=== PATIENT | female | born 1955 | race Hispanic/Latino ===

== ENCOUNTER → 2018-04-09 | Outpatient (CLI) | payer OTHER, MEDICARE ==
[~2018-04-09] MED LIST: ATENOLOL25 MG PO; ATENOLOL50 MG PO; DEXILANT60 MG PO; LOVASTATIN40 MG PO; MAG OX PO; NEURONTIN300 MG PO; OMEPRAZOLE20 MG PO; PRILOSEC20 MG PO; PRINIVIL10 MG PO; ULTRAM50 MG PO; ZOCOR10 MG PO
--- NOTE | 2018-04-12 08:43 | Diagnostic Imaging Report ---
TECHNIQUE: Magnetic resonance imaging of the LEFT foot (hindfoot and midfoot) was performed WITHOUT injected contrast. HISTORY: Edema, 6 months, report of a cyst removed about 6 years ago, problems since, pain and swelling COMPARISON: None available. DISCUSSION: Bone: No focal or infiltrative bone marrow replacing abnormality. No acute fracture or osteonecrosis. Moderate plantar calcaneal enthesophyte. Joints: No dislocation. Small nonspecific subtalar joint effusion. Mild scattered degenerative changes, most notably the third tarsometatarsal joint. Soft Tissues: Mild nonspecific dorsal soft tissue edema. Moderate thickening of the medial cord of the plantar fascia near the calcaneal insertion. IMPRESSION: 1. Mild nonspecific dorsal soft tissue edema. 2. Chronic plantar calcaneal enthesopathy. 3. Mild osteoarthrosis, most notably the third tarsometatarsal joint. Signed by: Dr. Raheel Epperson D.O., M.M.M. on 04/12/2018 8:39 AM
== END ==
LOC: MRI 15:30
PROVIDERS: ATTEND Podiatrist Foot & Ankle Surgery
DX: M79.672 Pain in left foot (principal); M79.89 Other specified soft tissue disorders; R60.9 Edema, unspecified; M77.8 Other enthesopathies, not elsewhere classified; M19.072 Primary osteoarthritis, left ankle and foot

== ENCOUNTER 2019-12-14 05:19 | Inpatient (IN) | payer OTHER, MEDICARE ==
[~2019-12-14] VITALS: Ht 170.2 cm; Wt 83.9 kg
[2019-12-14] MEDS ORDERED: SODIUM CHLORIDE 0.9% 1000ML 1,000 ML IV STA ×3 (05:23→08:44)
[2019-12-14] MEDS ORDERED: ONDANSETRON HCL INJ 2MG/ML 2ML 2 MG/ML VIAL IV STA (05:23)
[2019-12-14] MEDS ORDERED: MORPHINE SULFATE INJ 4 MG/ML INJ 1ML IV STA (05:23)
--- OUTSIDE RECORDS SUMMARY | 2019-12-14 05:25 | XMS REPORT ---
Author Author [facility] Address Unknown Phone Unavailable Care Team Providers Care Supervisor Estimator And Drafter Name Role Phone ED BARRERA Unavailable Unavailable Payers Payer Name Policy Type Policy Number Effective Date Expiration Date Problems This patient has no known problems. Allergies, Adverse Reactions, Alerts Allergy Name Allergy Type Status Severity Reaction(s) Onset Date Inactive Date Treating Clinician Comments Penicillins DA Active SV 2018-05-04 00:00:00 levofloxacin DA Active DC 2018-05-04 00:00:00 pregabalin DA Active MO 2018-05-04 00:00:00 pregabalin DA Active MO 2017-12-01 00:00:00 penicillin G DA Active MO 2017-11-26 00:00:00 Medications This patient has no known medications. Results Test Description Test Time Test Comments Text Results Atomic Results Result Comments - XR WRIST 3 + V RT 2019-07-20 22:34:00 Name: MANE DOYLE LOURDES [facility] : 1955 Age/S:63 /F [address] [facility] Unit#:[id number] Loc: [place] [address] Phys: Jessie Cruz SKID MAN Dis Date: PHONE #: [phone] Status: REG ER FAX #: [phone] Exam Date: 07/20/2019 Reason: injury EXAMS: CPT CODE: [id number] XR WRIST 3 + V RT [id number] REASON FOR EXAM: injury EXAM ORDER DATE: 07/20/2019 9:56 PM Ordering Charlie: Jessie Cruz NP PROCEDURE: - XR WRIST 3 + V RT FINDINGS: 3 views of the right wrist were obtained. A transverse, minimally displaced fracture of the distal right radius. The joint spaces are maintained. No evidence of fracture. The radiocarpal joint space is intact. The carpal bones are intact IMPRESSION: Minimally displaced transverse distal right radial fracture at 2234 Reported and signed by: Randy Pelaez M.D. CC: Jessie Cruz NP Technologist: KENA RAI RT(R),RDMS,CT Trnscrpt Data: 07/20/2019 ([id number]) [email or web address] Orig Print D/T: S: 07/20/2019 ([id number]) PAGE 1 Signed Report SCR MAMM BILATERAL VENECIA CAD DIGITAL 2019-04-28 09:29:35 - SCR MAMM BILATERAL VENECIA CAD DIGITALBILATERAL DIGITAL SCREENING MAMMOGRAM 3D/2D WITH CAD: 04/26/2019CLINICAL: Asymptomatic. Digital breast tomosynthesis was performed in addition to routine CC and MLO views. Current mammographic images were evaluated by either a [employer] M-Vu or a [employer] ImageMemoirer CAD (computer aided detection system). Comparison is made to exams dated 08/11/2017 mammogram, 06/03 mammogram, and 02/09/2015 mammogram - [facility]. There are scattered fibroglandular tissues in both breasts. No suspicious mass, architectural distortion, malignant type calcification, or lymph node abnormality detected. Breast architecture is stable compared to prior exams.IMPRESSION: NEGATIVEThere is no mammographic evidence of malignancy. Resume annual screening mammography in one year. Krysten medley/penrad:04/28/2019 09:29:35 Water Mechanic: Kay SANTOS, [facility] sent: BIRADS 1-2 Normal Mammogram BI-RADS: 1 Negative MRI FOOT LEFT WO 2018-04-12 08:17:00 [place] [address] Patient Name: MANE DOYLE MR #: [id number] : 1955 Age/Sex: 62/F Req #: [id number] Adm Physician: Ordered by: ED BARRERA DPM Report #: [id number] Location: MRI Room/Bed: Procedure: MRI/MRI FOOT LEFT WO Exam Date: Exam Time: REPORT STATUS: Signed TECHNIQUE: Magnetic resonance imaging of the LEFT foot (hindfoot and midfoot) was performed WITHOUT injected contrast. HISTORY: Edema, 6 months, report of a cyst removed about 6 years ago, problems since, pain and swelling COMPARISON: None available. DISCUSSION: Bone: No focal or infiltrative bone marrow replacing abnormality. No acute fracture or osteonecrosis. Moderate plantar calcaneal enthesophyte. Joints: No dislocation. Small nonspecific subtalar joint effusion. Mild scattered degenerative changes, most notably the third tarsometatarsal joint. Soft Tissues: Mild nonspecific dorsal soft tissue edema. Moderate thickening of the medial cord of the plantar fascia near the calcaneal insertion. IMPRESSION: 1. Mild nonspecific dorsal soft tissue edema. 2. Chronic plantar calcaneal enthesopathy. 3. Mild osteoarthrosis, most notably the third tarsometatarsal joint. Signed by: Dr. Raheel Epperson D.O., M.M.M. on 04/12/2018 8:39 AM Dictated By: RAHEEL EPPERSON DO 8 Transcribed By: LEFTY on 04/12/18838 COPY TO: ED BARRERA DPM
[2019-12-14] MEDS ORDERED: SODIUM CHLORIDE 0.9% 1000ML 1,000 ML ONE (05:29)
[2019-12-14] MEDS ORDERED: HYDROCODONE/APAP 5MG-325MG TAB PO PRN (06:15)
[2019-12-14 06:22] LABS: BASOPHILS # (AUTO) 0.1 (0.0-0.1); BASOPHILS % 0.4 % (0.0-1.0); EOSINOPHILS % 0.2 % (0.0-6.0); HEMATOCRIT 42.4 % (34.2-44.1); HEMOGLOBIN 14.2 g/dL (12.0-16.0); LYMPHOCYTES # (AUTO) 1.1 (1.0-3.2); LYMPHOCYTES % 5.9 % (18.0-39.1); MEAN CORPUSCULAR HGB CONC 33.5 g/dL (31-35); MEAN CORPUSCULAR VOLUME 86.5 fL (81-99); MONOCYTES # (AUTO) 0.8 (0.2-0.8); MONOCYTES % 4.2 % (4.4-11.3); NEUTROPHILS # (AUTO) 15.8 (2.1-6.9); NEUTROPHILS % 88.8 % (38.7-80.0); PLATELET COUNT 269 x10e3/uL (140-360); RED CELL DISTRIBUTION WIDTH 12.2 % (11.7-14.4)
[2019-12-14 06:52] LABS: ALANINE AMINOTRANSFERASE 29 IU/L (0-55); ALBUMIN 4.2 g/dL (3.5-5.0); ALBUMIN/GLOBULIN RATIO 1.2 (0.8-2.0); ALKALINE PHOSPHATASE 83 IU/L (40-150); ANION GAP 16.8 mmol/L (8-16); BLOOD UREA NITROGEN 17 mg/dL (7-26); BUN/CREATININE RATIO 22 (6-25); CALCIUM 9.8 mg/dL (8.4-10.2); CARBON DIOXIDE 25 mmol/L (22-29); CHLORIDE 101 mmol/L (98-107); CREATINE KINASE 61 IU/L (29-168); CREATININE, SERUM 0.79 mg/dL (0.57-1.11); EST GLOMERULAR FILTRATION RATE > 60 ML/MIN (60-); GLUCOSE 214 mg/dL (74-118); LIPASE 24 U/L (8-78); POTASSIUM 3.8 mmol/L (3.5-5.1); SODIUM 139 mmol/L (136-145)
[2019-12-14] MEDS ORDERED: CIPROFLOXACIN 400 MG/D5W 200ML 200 ML IV ONE (07:45)
[2019-12-14] MEDS ORDERED: IOPAMIDOL 370 MG/ML 200 ML INFUS..BTL INJ ONE (07:51)
[2019-12-14] MEDS ORDERED: SODIUM CHLORIDE 0.9% 50ML 50 ML ONE (07:51)
--- NOTE | 2019-12-14 08:01 | Diagnostic Imaging Report ---
EXAM: CT Abdomen and Pelvis WITH contrast INDICATION: Abdominal pain, nausea, vomiting, diarrhea COMPARISON: None. TECHNIQUE: Abdomen and pelvis were scanned utilizing a multidetector helical scanner from the lung base to the pubic symphysis after administration of IV contrast. Coronal and sagittal reformations were obtained. Routine protocol was performed. Scan was performed when during portal venous phase. IV CONTRAST: 100 mL of Isovue 370 ORAL CONTRAST: None COMPLICATIONS: None RADIATION DOSE: Total DLP: 517 mGy*cm Estimated effective dose: (DLP x 0.015 x size factor) mSv CTDIvol has been reviewed. It is below the limits set by the Radiation Protocol Committee (RPC). Dose modulation, iterative reconstruction, and/or weight based adjustment of the mA/kV was utilized to reduce the radiation dose to as low as reasonably achievable. FINDINGS: LINES/TUBES/DEVICES: Cardiac device lead tip in the right ventricle. Implanted cardiac device in the left chest subcutaneous adipose. LOWER THORAX: Unremarkable HEPATOBILIARY: Diffuse hepatic hypoattenuation relative to the spleen. No focal hepatic lesions. No biliary ductal dilation. GALLBLADDER: There are cholecystectomy clips. SPLEEN: No splenomegaly. PANCREAS: No focal masses or ductal dilatation. ADRENALS: No adrenal nodules KIDNEYS/URETERS: Subcentimeter left renal superior pole hypodensity is too small to characterize, likely benign. Kidneys enhance symmetrically. No hydronephrosis. No stones. GI TRACT: No abnormal distention, wall thickening, or evidence of bowel obstruction. Some distal small bowel loops demonstrate wall enhancement. Liquid stool throughout the colon. Appendix is normal. PELVIC ORGANS/BLADDER: Unremarkable. LYMPH NODES: No lymphadenopathy. VESSELS: Unremarkable. PERITONEUM / RETROPERITONEUM: No free air or fluid. BONES: Degenerative changes in the spine L4-S1 fixation hardware appears intact. Benign-appearing sclerosis in the right posterior iliac. Deformity of the left posterior iliac wing. SOFT TISSUES: Unremarkable. IMPRESSION: Findings can be seen with enterocolitis. Liquid stool in the colon compatible with diarrhea. Signed by: Dominick Rivas DO on 12/14/2019 7:58 AM
[2019-12-14] MEDS ORDERED: METOCLOPRAMIDE HCL 10 MG/2ML VIAL IV ONE (08:15)
[2019-12-14] MEDS ORDERED: METRONIDAZOLE 500MG/NS 100ML 100 ML IV ONE ×2 (08:15→08:19)
--- NOTE | 2019-12-14 09:02 | NUR ---
THIS AM AT 700 PT STATED SHE WAS TOO DIZZY TO WALK TO RESTROOM OR CLEAN HERSELF. PT WAS OBSERVED WALKING WITH EVEN STEADY GAIT TO RESTROOM.
--- NOTE | 2019-12-14 09:57 | NUR ---
CLEANED BY BED AND PT AND NEW CLOTHING AND DIAPER AND WIPES AND CLEANED.
[2019-12-14] MEDS ORDERED: DEXTROSE 50% SYRINGE 50 ML IV PRN (10:15)
[2019-12-14] MEDS ORDERED: METRONIDAZOLE 500MG/NS 100ML IV SCH (12:00)
[2019-12-14] MEDS: INSULIN REGULAR, HUMAN 100 UNIT/1 ML 3ML VIAL SQ SCH ×3 (12:13→21:00)
[2019-12-14] MEDS: SODIUM CHLORIDE 0.9% 1000ML 1,000 ML IV SCH ×2 (13:43→21:58)
--- NOTE | 2019-12-14 13:44 | NUR ---
blood cx and lactic done; per lab lactic hemolyzed and lab coming to re draw. aware.
[2019-12-14 15:55] VITALS: BP 118/66
--- NOTE | 2019-12-14 16:00 | NUR ---
The pt. was received from ER with comp of abd pain. Adm procedures were performed and the pt. reports pain @7/10. Post adm procedures completed the pt was medicated for pain.
[2019-12-14] MEDS ORDERED: MORPHINE SULFATE 2 MG/ML SYR 1ML IV PRN (16:15)
[2019-12-14 16:23] VITALS: BP 128/62
[2019-12-14] MEDS: METRONIDAZOLE 500MG/NS 100ML 100 ML IV SCH ×2 (16:48→21:39)
[2019-12-14] MEDS: HYDROMORPHONE 1MG/1ML INJ IV PRN (16:48)
[2019-12-14] MEDS: FAMOTIDINE 20 MG/2 ML VIAL IV SCH (17:00)
--- NOTE | 2019-12-14 19:15 | NUR ---
Patient received lying in bed. AAO x 3. Patient had no complaints of pain. Respirations even and non-labored. Fall precautions implemented. IVF infusing at 125 cc/hr. Patient instructed to call for assistance when needed. Call light within reach.
[2019-12-14 20:00] VITALS: BP 146/67
[2019-12-14 21:09] VITALS: BP 146/67
[2019-12-14] MEDS: CIPROFLOXACIN 400 MG/D5W 200ML 200 ML IV SCH (22:40)
[2019-12-15] VITALS (8 sets, daily range): BP systolic 105–159; BP diastolic 57–75
--- NOTE | 2019-12-15 01:55 | NUR ---
Patient's IV on left arm infiltrated. Old IV removed with tip intact. New IV inserted in patient's left upper arm. Patient tolerated well.
--- NOTE | 2019-12-15 02:00 | NUR ---
Blood specimen sent to lab for analysis of lactic aid level.
[2019-12-15] MEDS: SODIUM CHLORIDE 0.9% 1000ML 1,000 ML IV SCH ×2 (02:02→20:00)
[2019-12-15] MEDS: METRONIDAZOLE 500MG/NS 100ML 100 ML IV SCH ×4 (03:00→21:35)
[2019-12-15 06:30] LABS: BASOPHILS % 0.6 % (0.0-1.0); EOSINOPHILS # (AUTO) 0.1 (0.0-0.4); HEMATOCRIT 33.5 % (34.2-44.1); HEMOGLOBIN 10.9 g/dL (12.0-16.0); LYMPHOCYTES # (AUTO) 1.7 (1.0-3.2); LYMPHOCYTES % 27.2 % (18.0-39.1); MEAN CORPUSCULAR HEMOGLOBIN 28.5 pg (28-32); MEAN CORPUSCULAR HGB CONC 32.5 g/dL (31-35); MEAN CORPUSCULAR VOLUME 87.5 fL (81-99); MONOCYTES # (AUTO) 0.4 (0.2-0.8); MONOCYTES % 6.9 % (4.4-11.3); NEUTROPHILS % 64.1 % (38.7-80.0); PLATELET COUNT 188 x10e3/uL (140-360); RED BLOOD COUNT 3.83 x10e6/uL (3.6-5.1); RED CELL DISTRIBUTION WIDTH 12.4 % (11.7-14.4)
[2019-12-15 06:54] LABS: ALANINE AMINOTRANSFERASE 17 IU/L (0-55); ALBUMIN 3.2 g/dL (3.5-5.0); ALBUMIN/GLOBULIN RATIO 1.2 (0.8-2.0); ALKALINE PHOSPHATASE 58 IU/L (40-150); ANION GAP 10.6 mmol/L (8-16); BLOOD UREA NITROGEN 6 mg/dL (7-26); BUN/CREATININE RATIO 9 (6-25); CALCIUM 8.6 mg/dL (8.4-10.2); CARBON DIOXIDE 26 mmol/L (22-29); CHLORIDE 111 mmol/L (98-107); CREATININE, SERUM 0.68 mg/dL (0.57-1.11); EST GLOMERULAR FILTRATION RATE > 60 ML/MIN (60-); GLUCOSE 139 mg/dL (74-118); LIPASE 8 U/L (8-78); POTASSIUM 3.6 mmol/L (3.5-5.1); SODIUM 144 mmol/L (136-145)
--- NOTE | 2019-12-15 07:00 | NUR ---
Walkings rounds done. Patient resting comfortably. Shift report given to oncoming nurse
[2019-12-15] MEDS: INSULIN REGULAR, HUMAN 100 UNIT/1 ML 3ML VIAL SQ SCH ×4 (07:30→21:00)
--- NOTE | 2019-12-15 07:30 | NUR ---
PATIENT IN BED RESTING WITH EYES CLOSED, NO RESPIRATORY DISTRESS OBSERVED. IV FLUID INFUSING ORDERED. BED IN LOWER POSITION, CALL LIGHT AT REACH.
[2019-12-15] MEDS: FAMOTIDINE 20 MG/2 ML VIAL IV SCH ×2 (09:06→17:02)
[2019-12-15] MEDS: CIPROFLOXACIN 400 MG/D5W 200ML 200 ML IV SCH ×2 (10:10→22:35)
--- NOTE | 2019-12-15 11:33 | NUR ---
PATIENT SITTING AT BED SIDE WATCHING TV, CALL LIGHT AT REACH.
--- NOTE | 2019-12-15 15:15 | NUR ---
PATIENT ASSISTED WITH SHOWER, BACK IN BED TALKING TO FAMILY MEMBER VISITING. CALL LIGHT AT REACH.
[2019-12-15] MEDS: TRAMADOL HCL 50 MG TAB PO SCH (17:02)
[2019-12-15] MEDS: GABAPENTIN 300 MG CAP PO SCH (17:02)
--- NOTE | 2019-12-15 19:15 | NUR ---
Patient received lying in bed. AAO x 4 . Family at bedside. No acute distress noted. Call light within reach.
[2019-12-15] MEDS: SIMVASTATIN 40 MG TAB PO SCH (21:35)
[2019-12-16] VITALS (7 sets, daily range): BP systolic 131–162; BP diastolic 60–74
[2019-12-16] MEDS: ONDANSETRON HCL INJ 2MG/ML 2ML 2 MG/ML VIAL IV PRN ×3 (00:10→15:05)
[2019-12-16] MEDS: METRONIDAZOLE 500MG/NS 100ML 100 ML IV SCH ×4 (01:59→20:30)
[2019-12-16] MEDS: SODIUM CHLORIDE 0.9% 1000ML 1,000 ML IV SCH (03:53)
[2019-12-16 05:24] LABS: BASOPHILS % 0.5 % (0.0-1.0); EOSINOPHILS # (AUTO) 0.1 (0.0-0.4); HEMOGLOBIN 10.7 g/dL (12.0-16.0); LYMPHOCYTES # (AUTO) 1.8 (1.0-3.2); LYMPHOCYTES % 29.2 % (18.0-39.1); MEAN CORPUSCULAR HEMOGLOBIN 28.3 pg (28-32); MEAN CORPUSCULAR HGB CONC 32.4 g/dL (31-35); MEAN CORPUSCULAR VOLUME 87.3 fL (81-99); MONOCYTES # (AUTO) 0.5 (0.2-0.8); MONOCYTES % 8.1 % (4.4-11.3); NEUTROPHILS # (AUTO) 3.7 (2.1-6.9); NEUTROPHILS % 60.9 % (38.7-80.0); PLATELET COUNT 173 x10e3/uL (140-360); RED BLOOD COUNT 3.78 x10e6/uL (3.6-5.1); RED CELL DISTRIBUTION WIDTH 12.4 % (11.7-14.4)
[2019-12-16 05:39] LABS: ANION GAP 12.2 mmol/L (8-16); BLOOD UREA NITROGEN 5 mg/dL (7-26); BUN/CREATININE RATIO 8 (6-25); CALCIUM 8.6 mg/dL (8.4-10.2); CARBON DIOXIDE 24 mmol/L (22-29); CHLORIDE 109 mmol/L (98-107); CREATININE, SERUM 0.64 mg/dL (0.57-1.11); EST GLOMERULAR FILTRATION RATE > 60 ML/MIN (60-); GLUCOSE 118 mg/dL (74-118); POTASSIUM 3.2 mmol/L (3.5-5.1); SODIUM 142 mmol/L (136-145)
--- NOTE | 2019-12-16 06:30 | NUR ---
Dr. Richardson here to see patient. New orders received.
--- NOTE | 2019-12-16 06:45 | NUR ---
Stool specimen sent to lab for analysis
--- NOTE | 2019-12-16 07:00 | NUR ---
Walking rounds done. Patient resting comfortably. Shift report given to oncoming nurse.
[2019-12-16] MEDS ORDERED: CITRATE OF MAGNESIA 300ML BOTTLE PO ONE ×2 (07:10→07:45)
[2019-12-16 07:19] LABS: FERRITIN 69.18 ng/mL (4.63-204.00)
--- NOTE | 2019-12-16 07:20 | NUR ---
MD IN TO SEE PATIENT, NEW ORDERS RECEIVED. PATIENT IN BED WITH CALL LIGHT AT REACH.
[2019-12-16] MEDS ORDERED: PANTOPRAZOLE SOD 40 MG TABEC PO SCH (07:30)
[2019-12-16] MEDS: INSULIN REGULAR, HUMAN 100 UNIT/1 ML 3ML VIAL SQ SCH ×4 (07:30→21:00)
--- NOTE | 2019-12-16 08:43 | NUR ---
SPOKE WITH MD REGARDING ABNORMAL LAB RESULT, NEW ORDER RECEIVED.
[2019-12-16] MEDS: ATENOLOL 50 MG TAB PO SCH (09:00)
[2019-12-16] MEDS: LISINOPRIL 10 MG TAB PO SCH (09:00)
[2019-12-16] MEDS: TRAMADOL HCL 50 MG TAB PO SCH ×2 (09:00→17:00)
[2019-12-16] MEDS: GABAPENTIN 300 MG CAP PO SCH ×2 (09:00→17:00)
[2019-12-16] MEDS ORDERED: POTASSIUM CHLORIDE 20MEQ/100ML 200 ML IV ONE (09:15)
[2019-12-16] MEDS: FAMOTIDINE 20 MG/2 ML VIAL IV SCH ×2 (09:21→19:08)
[2019-12-16] MEDS: CIPROFLOXACIN 400 MG/D5W 200ML 200 ML IV SCH ×2 (09:33→20:30)
[2019-12-16] MEDS: MAGNESIUM OXIDE 400 MG TAB PO SCH ×2 (10:15→17:00)
[2019-12-16] MEDS ORDERED: POTASSIUM CHLORIDE 10MEQ EA PO ONE (10:50)
--- NOTE | 2019-12-16 11:03 | NUR ---
PATIENT C/O NAUSEA, PRN ZOFRAN GIVEN. WILL CLOSELY MONITOR.
--- NOTE | 2019-12-16 12:00 | NUR ---
PATIENT HAS AN ORDER FOR PO POTASSIUM , REFUSED STATING THAT IT WILL COME OUT IMMEDIATELY. NAUSEA MEDICATION GIVEN. PATIENT CONTINUES TO REFUSE.
[2019-12-16] MEDS ORDERED: ROCURONIUM BROMIDE 10 MG/ML 5ML VIAL ONE (12:59)
[2019-12-16] MEDS: SOD CHL 0.45%/POT CHL 20MEQ 1,000 ML IV SCH ×2 (15:00→20:30)
[2019-12-16] MEDS ORDERED: FENTANYL CITRATE/PF 100MCG/2 ML INJ ONE (15:04)
[2019-12-16] MEDS ORDERED: MIDAZOLAM HCL 2 MG/2 ML VIAL ONE (15:04)
--- NOTE | 2019-12-16 15:45 | NUR ---
PATIENT OFF UNIT TO ENDO.
[2019-12-16] MEDS ORDERED: ONDANSETRON HCL INJ 2MG/ML 2ML 2 MG/ML VIAL ONE (18:29)
[2019-12-16] MEDS ORDERED: PANTOPRAZOLE 40 MG 10ML VIAL IV NR (18:45)
--- NOTE | 2019-12-16 18:58 | NUR ---
PATIENT BACK TO UNIT FROM ENDO. ALERT AND VERBALLY RESPONSIVE. HAD A COLONOSCOPY AND EGD. POLYPS REMOVED AND BIOPSY PER PACU NURSE. V/S 97.5-56-18-132/60 AND 99% ON RA.
[2019-12-16 19:00] LABS: WBC,FECAL (FECAL LACTOFERRIN) NEGATIVE (NEGATIVE)
[2019-12-16] MEDS: SIMVASTATIN 40 MG TAB PO SCH (20:30)
[2019-12-16] MEDS: HYDROMORPHONE 1MG/1ML INJ IV PRN (20:30)
[2019-12-16] MEDS: DICYCLOMINE HCL 20 MG TAB PO SCH (20:30)
[2019-12-17] VITALS (8 sets, daily range): BP systolic 99–137; BP diastolic 55–63
[2019-12-17] MEDS: METRONIDAZOLE 500MG/NS 100ML 100 ML IV SCH ×4 (02:30→22:38)
[2019-12-17] MEDS: SOD CHL 0.45%/POT CHL 20MEQ 1,000 ML IV SCH ×2 (05:30→15:30)
[2019-12-17] MEDS ORDERED: PANTOPRAZOLE 40 MG 10ML VIAL IV SCH (06:00)
[2019-12-17 06:31] LABS: ANION GAP 12.5 mmol/L (8-16); BLOOD UREA NITROGEN 5 mg/dL (7-26); BUN/CREATININE RATIO 7 (6-25); CALCIUM 8.5 mg/dL (8.4-10.2); CARBON DIOXIDE 18 mmol/L (22-29); CHLORIDE 113 mmol/L (98-107); CREATININE, SERUM 0.67 mg/dL (0.57-1.11); EST GLOMERULAR FILTRATION RATE > 60 ML/MIN (60-); GLUCOSE 100 mg/dL (74-118); MAGNESIUM 2.1 MG/DL (1.3-2.1); PHOSPHORUS 3.1 MG/DL (2.3-4.7); POTASSIUM 3.5 mmol/L (3.5-5.1); SODIUM 140 mmol/L (136-145)
--- NOTE | 2019-12-17 07:00 | NUR ---
Patient resting comfortably. No acute distress noted. Shift report given to oncoming nurse.
--- NOTE | 2019-12-17 07:25 | NUR ---
PT UP IN BED ,C/O MILD PAIN TO ABD ,STILL HAVING LIQUID STOOLS
[2019-12-17] MEDS: INSULIN REGULAR, HUMAN 100 UNIT/1 ML 3ML VIAL SQ SCH ×4 (07:30→21:00)
[2019-12-17] MEDS: ATENOLOL 50 MG TAB PO SCH (09:00)
[2019-12-17] MEDS: FAMOTIDINE 20 MG/2 ML VIAL IV SCH (09:00)
[2019-12-17] MEDS: TRAMADOL HCL 50 MG TAB PO SCH ×2 (09:00→17:27)
[2019-12-17] MEDS: LISINOPRIL 10 MG TAB PO SCH (09:00)
[2019-12-17] MEDS: CIPROFLOXACIN 400 MG/D5W 200ML 200 ML IV SCH ×2 (09:00→21:00)
[2019-12-17] MEDS: DICYCLOMINE HCL 20 MG TAB PO SCH ×4 (09:00→21:00)
[2019-12-17] MEDS: MAGNESIUM OXIDE 400 MG TAB PO SCH ×2 (09:00→17:21)
[2019-12-17] MEDS: GABAPENTIN 300 MG CAP PO SCH ×2 (09:00→17:21)
--- NOTE | 2019-12-17 13:13 | NUR ---
GABY MATUTE ORDERED,CLEAR YELLOW URINE Addendum: 12/17/19 at 1319 by Iliana Edwards LVN ENTER ON WRONG PAIENT
[2019-12-17 13:45] LABS: C DIFFICILE TOXIN A&B AMP PROB NEGATIVE (NEGATIVE)
[2019-12-17] MEDS: CHOLESTYRAMINE 4 GM PACKET PO SCH (17:21)
--- NOTE | 2019-12-17 17:59 | NUR ---
PT UP IN CHAIR,TOLERATING PO FULL LIQUID WELL,PAIN LEVEL 3 ABD
--- NOTE | 2019-12-17 19:30 | NUR ---
Patient received sitting by bedside. AAO x 4. Patient had complaints of pain (3/10) to left side of her abdomen. Will continue to monitor. No signs of respiratory distress. IVF infusing at 100 cc/hr. Safety measures in place. Patient instructed to call for assistance when needed. Call light within reach.
[2019-12-17] MEDS: SIMVASTATIN 40 MG TAB PO SCH (22:38)
[2019-12-18] VITALS (7 sets, daily range): BP systolic 96–133; BP diastolic 45–60
[2019-12-18] MEDS ORDERED: DIPHENOXYLATE/ATROPINE TAB PO STA ×2 (01:06→02:18)
[2019-12-18] MEDS: SOD CHL 0.45%/POT CHL 20MEQ 1,000 ML IV SCH (01:30)
--- NOTE | 2019-12-18 01:56 | Operative Report ---
DATE OF PROCEDURE: 12/16/2019 SURGEON: Alexi Richardson MD PROCEDURES: EGD with polypectomy and biopsies and colonoscopy with polypectomy and biopsies. INDICATIONS FOR EGD: Upper abdominal pain, nausea, and vomiting. INDICATION FOR COLONOSCOPY: Persistent diarrhea. MEDICATIONS: The patient was done under MAC, please see anesthesiologist's note. PROCEDURE IN DETAIL: With the patient in left lateral decubitus position, a flexible fiberoptic Olympus gastroscope was introduced into the esophagus under direct visualization without any difficulty. There was some patchy erythema noted in the distal esophagus. The scope was then advanced with ease into the stomach and the mucosa overlying the antrum and the body revealed some patchy erythema and low-grade to moderate edema, and biopsies were obtained and sent to stain for H pylori. A minute polyp was noted in the distal body along the greater curvature and that was partially excised with the cold biopsy forceps. The pylorus was of normal contour and shape, was intubated with ease and the scope was advanced all the way to the second portion of the duodenum. Biopsies were obtained from the proximal second portion and the duodenal bulb to rule out sprue. The scope was then withdrawn back into the stomach and retroflexed and the mucosa overlying the fundus as well as the cardia appeared to be within normal limits. The scope was then straightened out. It was subsequently withdrawn. The patient tolerated the procedure well. IMPRESSION: 1. Distal esophagitis. 2. Gastritis, biopsied. Biopsies sent to stain for H pylori. 3. Gastric polyp, distal body partially excised with cold biopsy forceps. 4. Rule out sprue. PLAN: Follow up histology. Initiate Protonix 40 mg one p.o. before meals b.i.d. The patient was then turned around after adequate lubrication of the anal canal. Flexible fiberoptic Olympus colonoscope was inserted into the rectum with ease and advanced all the way to the cecum. The mucosa overlying the cecum appeared to be within normal limits. The ileocecal valve was intubated and the scope was advanced into the terminal ileum. Biopsies were obtained. The scope was then withdrawn back into the colon. It was then withdrawn slowly and the mucosa overlying the ascending colon appeared to be within normal limits. One polyp was hot biopsied from the distal transverse colon. There were some mild patchy inflammatory changes noted in the left colon and multiple random biopsies were obtained. One polyp was hot snared from the sigmoid colon. There was a prominent fold in the distal sigmoid colon and that was biopsied. Similar inflammatory changes were noted in the rectum and biopsies were obtained. The scope was then retroflexed into the distal rectum and small internal hemorrhoids were noted, none of which was actively bleeding. The scope was then straightened out, it was subsequently withdrawn, and the patient tolerated procedure well. IMPRESSION: 1. Transverse colon polyp, hot biopsied. 2. Mild patchy left-sided colitis. 3. Sigmoid colon polyp, hot snared. 4. Prominent fold, distal sigmoid colon, biopsied. 5. Proctitis, mild, biopsied. 6. Internal hemorrhoids, none actively bleeding. PLAN: Follow up histology. Follow up stool studies. Initiate Bentyl 20 mg one p.o. q.i.d. Start GI soft diet. Alexi Richardson MD [facility] [place]/MODL /[id number] cc: Sukumar Perez MD
[2019-12-18] MEDS: METRONIDAZOLE 500MG/NS 100ML 100 ML IV SCH ×4 (02:00→20:17)
--- NOTE | 2019-12-18 07:00 | NUR ---
Walking rounds done. Patient resting comfortably. Bed-side shift report given to oncoming nurse.
[2019-12-18] MEDS: INSULIN REGULAR, HUMAN 100 UNIT/1 ML 3ML VIAL SQ SCH ×4 (07:30→21:00)
[2019-12-18] MEDS: PANTOPRAZOLE 40 MG 10ML VIAL IV SCH (08:37)
[2019-12-18] MEDS: LISINOPRIL 10 MG TAB PO SCH (08:38)
[2019-12-18] MEDS: DICYCLOMINE HCL 20 MG TAB PO SCH ×4 (08:38→20:18)
[2019-12-18] MEDS: CHOLESTYRAMINE 4 GM PACKET PO SCH ×2 (08:38→17:35)
[2019-12-18] MEDS: ATENOLOL 50 MG TAB PO SCH (08:38)
[2019-12-18] MEDS: GABAPENTIN 300 MG CAP PO SCH ×2 (08:38→17:35)
[2019-12-18] MEDS: TRAMADOL HCL 50 MG TAB PO SCH ×2 (08:39→17:35)
[2019-12-18] MEDS: CIPROFLOXACIN 400 MG/D5W 200ML 200 ML IV SCH (09:20)
[2019-12-18 11:22] LABS: BASOPHILS # (AUTO) 0.1 (0.0-0.1); BASOPHILS % 0.8 % (0.0-1.0); EOSINOPHILS # (AUTO) 0.2 (0.0-0.4); EOSINOPHILS % 2.3 % (0.0-6.0); HEMATOCRIT 34.7 % (34.2-44.1); HEMOGLOBIN 11.4 g/dL (12.0-16.0); LYMPHOCYTES # (AUTO) 1.9 (1.0-3.2); MEAN CORPUSCULAR HEMOGLOBIN 28.9 pg (28-32); MEAN CORPUSCULAR HGB CONC 32.9 g/dL (31-35); MEAN CORPUSCULAR VOLUME 88.1 fL (81-99); MONOCYTES # (AUTO) 0.5 (0.2-0.8); MONOCYTES % 7.8 % (4.4-11.3); NEUTROPHILS # (AUTO) 3.9 (2.1-6.9); NEUTROPHILS % 59.9 % (38.7-80.0); PLATELET COUNT 207 x10e3/uL (140-360); RED BLOOD COUNT 3.94 x10e6/uL (3.6-5.1); RED CELL DISTRIBUTION WIDTH 12.7 % (11.7-14.4)
[2019-12-18 11:30] LABS: ANION GAP 11.1 mmol/L (8-16); BLOOD UREA NITROGEN 5 mg/dL (7-26); BUN/CREATININE RATIO 6 (6-25); CALCIUM 8.7 mg/dL (8.4-10.2); CARBON DIOXIDE 21 mmol/L (22-29); CHLORIDE 110 mmol/L (98-107); EST GLOMERULAR FILTRATION RATE > 60 ML/MIN (60-); GLUCOSE 171 mg/dL (74-118); POTASSIUM 4.1 mmol/L (3.5-5.1); SODIUM 138 mmol/L (136-145)
--- NOTE | 2019-12-18 13:51 | Diagnostic Imaging Report ---
EXAMINATION: CHEST 2 VIEWS INDICATION: Pain. COMPARISON: None FINDINGS: TUBES and LINES: None. Single lead left-sided AICD. LUNGS: Lungs are well inflated. Mild bibasilar atelectasis. There is no evidence of pneumonia or pulmonary edema. PLEURA: No pleural effusion or pneumothorax. HEART AND MEDIASTINUM: The cardiomediastinal silhouette is unremarkable. BONES AND SOFT TISSUES: No acute osseous lesion. Degenerative changes of the thoracic spine. UPPER ABDOMEN: No free air under the diaphragm. Cholecystectomy clips. IMPRESSION: No acute thoracic abnormality. Signed by: Dr. Renay Silver M.D. on 12/18/2019 1:49 PM
[2019-12-18] MEDS ORDERED: CLINDAMYCIN HC150 MG PO (14:09)
[2019-12-18] MEDS ORDERED: PREDNISONE20 MG PO (14:10)
[2019-12-18] MEDS: CARVEDILOL 3.125 MG TAB PO SCH (17:00)
[2019-12-18] MEDS ORDERED: SODIUM CHLORIDE 0.9% 250ML 250 ML ONE (19:50)
[2019-12-18] MEDS: SIMVASTATIN 40 MG TAB PO SCH (20:18)
[2019-12-18] MEDS ORDERED: DIPHENOXYLATE/ATROPINE TAB PO ONE (23:30)
[2019-12-19] VITALS (9 sets, daily range): BP systolic 95–128; BP diastolic 44–66
[2019-12-19] MEDS ORDERED: DIPHENOXYLATE/ATROPINE TAB PO SCH (06:00)
--- NOTE | 2019-12-19 06:56 | NUR ---
RECEIVED BEDSIDE SHIFT REPORT FROM OFF GOING NURSE. PATIENT IS IN STABLE CONDITION, NO ACUTE DISTRESS NOTED. CALL LIGHT WITHIN REACH. BED IN THE LOWEST POSITION.
[2019-12-19] MEDS: INSULIN REGULAR, HUMAN 100 UNIT/1 ML 3ML VIAL SQ SCH ×4 (07:30→20:41)
[2019-12-19] MEDS: CHOLESTYRAMINE 4 GM PACKET PO SCH ×2 (09:07→17:27)
[2019-12-19] MEDS: DIPHENOXYLATE/ATROPINE TAB PO SCH ×3 (09:07→17:20)
[2019-12-19] MEDS: TRAMADOL HCL 50 MG TAB PO SCH ×2 (09:07→17:28)
[2019-12-19] MEDS: PANTOPRAZOLE 40 MG 10ML VIAL IV SCH (09:07)
[2019-12-19] MEDS: LISINOPRIL 10 MG TAB PO SCH (09:07)
[2019-12-19] MEDS: DICYCLOMINE HCL 20 MG TAB PO SCH ×4 (09:07→20:40)
[2019-12-19] MEDS: GABAPENTIN 300 MG CAP PO SCH ×2 (09:07→17:27)
[2019-12-19] MEDS: CARVEDILOL 3.125 MG TAB PO SCH ×2 (09:07→16:50)
--- NOTE | 2019-12-19 18:05 | NUR ---
PAGED [employer] FOR PACEMAKER INTERROGATION. SPOKE TO
--- NOTE | 2019-12-19 19:33 | NUR ---
Bedside shift report given to oncoming nurse. Patient is resting in bed, no s/s of distress noted. Call light within reach. Bed in the lowest position.
[2019-12-19] MEDS ORDERED: ONDANSETRON HCL 4 MG ORAL DISINTEGRATING TAB PO PRN ×2 (20:15)
[2019-12-19] MEDS: SIMVASTATIN 40 MG TAB PO SCH (20:40)
--- NOTE | 2019-12-19 23:54 | Consultation ---
DATE OF CONSULTATION: 12/19/2019 Cardiology Consult HISTORY OF PRESENT ILLNESS: Ms. Judy Stewart, a 64-year-old female, with a primary history of hypertension, diabetes, hyperlipidemia, bradyarrhythmia with pacemaker, originally admitted for acute gastroenteritis. Now, Cardiology is consulted for bradycardia on her EKG. The patient reports she has been having intermittent dizziness and severe fatigue with some shortness of breath and pulsatile tinnitus. The same symptoms she felt before the pacemaker was implanted in May 2018. The patient denies chest pain. PAST MEDICAL HISTORY: Hypertension, diabetes, hyperlipidemia, neuropathy. PAST SURGICAL HISTORY: Cholecystectomy and pacemaker implantation in May 2018, back surgery, and bilateral feet surgery. MEDICATIONS: The patient is taking carvedilol 3.125 mg b.i.d., lisinopril 10 mg daily, atorvastatin 40 mg daily. FAMILY HISTORY: Mother, father, and sister all three are for heart disease. SOCIAL HISTORY: The patient never smoked or no alcohol or drug use. PHYSICAL EXAMINATION: VITAL SIGNS: 100/60 blood pressure, heart rate is 60, temperature 97.9, respirations are 18, pulse oximetry is 97% to 99% on room air. APPEARANCE: The patient is well-developed. She is in no acute distress. HEENT: Head is normocephalic, atraumatic. Eyes, pupils are equal, round, reactive to light and accommodation. Sclerae are nonicteric. Ears are normal. Oral cavity mucosa is moist. Throat is clear. NECK: Supple. Full range of motion. No cervical lymphadenopathy. No. No thyromegaly. SKIN: Warm and dry. No suspicious lesions. CARDIOVASCULAR: Regular rate and rhythm. S1 and S2 are normal. No murmurs heard. LUNGS: Clear to auscultation. ABDOMEN: Soft, nontender, nondistended. Bowel sounds are present and normal. EXTREMITIES: No cyanosis. Do have trace edema bilaterally. NEUROLOGIC: Nonfocal. Motor strength in upper and lower extremities is normal. The sensory exam is intact. IMAGING DATA: EKG dated December 19, 2019, at 1032, it is sinus bradycardia with a rate of 56 beats per minute. T-wave abnormality in anterior leads. IMPRESSION AND RECOMMENDATION: The patient is a 64-year-old female with symptomatic bradycardia. 1. The patient's pacemaker needs to be interrogated. 2. Obtain echocardiogram. 3. Monitor on telemetry. 4. Further cardiac workup depending on clinical course. Thank you for your consultation. We will continue to follow. Dictated by Nina Ch, LIGHTING FIXTURES DECORATOR MD OMAR Beverly/KRISSY /[id number]
[2019-12-20 01:23] VITALS: BP 116/54
[2019-12-20 05:23] VITALS: BP 118/49
--- NOTE | 2019-12-20 06:54 | NUR ---
BEDSIDE SHIFT REPORT RECEIVED FROM OFF GOING NURSE. PATIENT IS RESTING IN BED. NO ACUTE DISTRESS NOTED AT THIS TIME. FAMILY MEMBER AT BEDSIDE. CALL LIGHT WITHIN REACH. BED IN THE LOWEST POSITION.
[2019-12-20] MEDS: DIPHENOXYLATE/ATROPINE TAB PO SCH ×2 (07:00→11:55)
--- NOTE | 2019-12-20 07:00 | NUR ---
Bedside report and walking rounds completed with oncoming nurse. Patient in bed resting. Call light within reach. No issues or concerns noted.
[2019-12-20] MEDS ORDERED: PANTOPRAZOLE SOD 40 MG TABEC PO SCH (07:30)
[2019-12-20] MEDS: INSULIN REGULAR, HUMAN 100 UNIT/1 ML 3ML VIAL SQ SCH ×2 (07:30→11:30)
[2019-12-20 08:00] VITALS: BP 117/51
[2019-12-20] MEDS: LISINOPRIL 10 MG TAB PO SCH (08:03)
[2019-12-20] MEDS: GABAPENTIN 300 MG CAP PO SCH (08:33)
[2019-12-20] MEDS: CHOLESTYRAMINE 4 GM PACKET PO SCH (08:33)
[2019-12-20] MEDS: CARVEDILOL 3.125 MG TAB PO SCH (08:33)
[2019-12-20] MEDS: DICYCLOMINE HCL 20 MG TAB PO SCH ×2 (08:33→12:00)
[2019-12-20 08:34] VITALS: BP 117/51
[2019-12-20] MEDS: TRAMADOL HCL 50 MG TAB PO SCH (08:34)
--- NOTE | 2019-12-20 09:18 | NUR ---
PER DR. Yesenia CRUZ, IF PATIENT DOES NOT HAVE A BM AFTER LUNCH SHE CAN BE CLEARED FROM GI STAND POINT FOR DC. WILL NOTIFY ATTENDING.
[2019-12-20 12:00] VITALS: BP 135/63
--- NOTE | 2019-12-20 12:48 | NUR ---
Nutrition Screen Note RD Recommendation for Physician: - Continue current diet as tolerated Plan of Care: RD following, monitoring for tolerance and adequacy Nutrition reason for involvement: RN Consult- pt requesting diet education Primary Diagnose(s): abdominal pain, diarrhea, acute gastroenteritis PMH: HTN, DM, HLD, pacemaker, cholecystectomy Ht: 67 in Wt: 185 lb BMI: 29 kg/m2 IBW: [address] Assessment: (12/20) 64 YOF admitted for abdominal pain, diarrhea, and suspected acute gastroenteritis. Pt seen today per request for diet education prior to discharge. Pt eating well since admit, 75-100% of meals. Pt continues with increased BMs, currently 3-4 per day. Pt educated on GI Soft diet and recommendations for colitis per request. All questions and concerns addressed at time of visit. Chart reviewed. Labs and meds reviewed, noted pt on bentyl, lomotil, and questran. Will continue to monitor. Current Diet: GI Soft, low lactose Malnutrition Evaluation (12/20/19) The patient does not meet criteria for a specified degree of malnutrition at this time. Will re-evaluate at follow-up as appropriate. Diet Education Needs Assessment: Pt requesting diet education, education and materials provided 12/20. Learner(s): pt Barriers: none Cultural/Language Modifications: none Readiness: eager Method: handout, discussion Topics: GI soft diet restrictions, IBD/UC recommendations Understanding/Compliance: fair Diet tolerance: tolerating po, continues with diarrhea Nutrition Care Level: low Signed: Susi Tejada RD, LD, [facility]
--- NOTE | 2019-12-20 13:35 | NUR ---
RECEIVED DC ORDER FROM MD. PATIENT IS IN STABLE CONDITION. IV LINE TO RIGHT HAND DCD WITH TIP INTACT, PRESSURE APPLIED TO SITE, NO BLEEDING NOTED. DISCHARGE TEACHING PROVIDED TO PATIENT AND SON THEY BOTH VERBALIZED UNDERSTANDING. DISCHARGE PAPERWORK AND PRESCRIPTIONS ON DC FOLDER. PATIENT ACCOMPANIED TO PRIVATE AUTO VIA WHEELCHAIR BY STAFF.
--- NOTE | 2019-12-21 00:59 | Discharge Summary ---
PRIMARY CARE PHYSICIAN: Alexander Edmond MD FINAL DIAGNOSES: 1. Acute abdominal pain associated with acute diarrhea, status post colonoscopy. The patient has acute colitis, enteritis, resolving. The stool for Clostridium difficile toxin was negative. 2. Multiple small polyps, status post polypectomy. 3. Bradycardia, status post pacemaker interrogation and also adjustment of medication. SUMMARY: A 64 years old female, came in with profound diarrhea ongoing. For the past week, the patient has persistent diarrhea even after the colonoscopy. The patient is started on Lomotil and Questran. She is doing much better now. She was having problem with eating and then having diarrhea. The patient was started on Bentyl as well. The patient do much better now. Interrogation of the permanent pacemaker was done by Dr. Louis Woody. The patient seemed to be comfortable. She is ambulatory. She has tolerated her diet now. Adjustment of her medication was made. However, the atenolol will be discontinued. The patient was on prednisone and clindamycin outpatient for her upper respiratory is conditioned that was auto-discontinued. New prescription is Coreg 3.125 mg b.i.d., Questran 1 package q.6 p.r.n., Bentyl 20 mg before meal, Lomotil 2 tabs before meals as needed for diarrhea. Zofran ODT 4 mg sublingual q.4 hours as needed for nausea and vomiting. The patient is otherwise stable, discharge home today once cleared with the statistician mathematical regarding the permanent pacemaker interrogation. MD CHRISTIANO Powers/MARYL /[id number]
== END 2019-12-20 13:19 | disposition home or self-care (01) | DRG 392 ==
LOC: ER 05:19 → ERHOLD 10:13 → MED/SURG3 15:18
PROVIDERS: ADMIT Internal Medicine; ATTEND Internal Medicine
PROC: 0DB68ZX Excision of Stomach, Via Natural or Artificial Opening Endoscopic, Diagnostic (ICD-10-PCS; principal; 2019-12-14)
PROC: 0DB78ZZ Excision of Stomach, Pylorus, Via Natural or Artificial Opening Endoscopic (ICD-10-PCS; 2019-12-14)
PROC: 0DBN8ZX Excision of Sigmoid Colon, Via Natural or Artificial Opening Endoscopic, Diagnostic (ICD-10-PCS; 2019-12-16)
PROC: 0DBP8ZX Excision of Rectum, Via Natural or Artificial Opening Endoscopic, Diagnostic (ICD-10-PCS; 2019-12-16)
PROC: 0DBB8ZX Excision of Ileum, Via Natural or Artificial Opening Endoscopic, Diagnostic (ICD-10-PCS; 2019-12-16 16:44)
PROC: 0DBE8ZX Excision of Large Intestine, Via Natural or Artificial Opening Endoscopic, Diagnostic (ICD-10-PCS; 2019-12-16 16:44)
PROC: 0DBL8ZX Excision of Transverse Colon, Via Natural or Artificial Opening Endoscopic, Diagnostic (ICD-10-PCS; 2019-12-16 16:44)
DX: K52.9 Noninfective gastroenteritis and colitis, unspecified (principal); K29.70 Gastritis, unspecified, without bleeding; K31.7 Polyp of stomach and duodenum; K20.9 Esophagitis, unspecified; E78.5 Hyperlipidemia, unspecified; I10 Essential (primary) hypertension; E11.40 Type 2 diabetes mellitus with diabetic neuropathy, unspecified; Z79.4 Long term (current) use of insulin; Z95.0 Presence of cardiac pacemaker; I49.8 Other specified cardiac arrhythmias; Z80.0 Family history of malignant neoplasm of digestive organs; M19.90 Unspecified osteoarthritis, unspecified site
CPT/HCPCS: 36415; 43239; 45378; 45380; 45384; 45385; 71046; 74177; 80048; 80053; 82270; 82550; 82553; 82607; 82728; 82746; 82948; 83540; 83605; 83630; 83690; 83735; 83880; 83993; 84100; 84466; 84484; 85025; 85045; 87040; 87045; 87177; 87328; 87493; 88305; 88312; 93005; 99285; J1170; J2250; J2405; J2765; J3010; J3480; J7030; J7050; Q9967